=== PATIENT | female | born 1960 | race Hispanic/Latino ===

== ENCOUNTER 2016-12-12 21:16 | Inpatient (IN) | payer BC ==
[2016-12-12] MEDS ORDERED: NACL 0.9% 1000 ML 1,000 ML IV ONE (21:40)
[2016-12-12 22:14] LABS: Basophils % (Auto) 0.4 % (0.0-1.8); Eosinophils % (Auto) 0.1 % (0.0-4.3); Hematocrit 46.1 % (30.3-42.9); Hemoglobin 15.1 gm/dl (10.1-14.3); Mean Corpuscular HGB Conc 33 % (30-34); Mean Corpuscular Hemoglobin 28 pg (28-32); Mean Corpuscular Volume 87 fl (79-97); Platelet Count 295 K/mm3 (140-440); Red Blood Count 5.32 M/mm3 (3.65-5.03); Red Cell Distribution Width 13.3 % (13.2-15.2); White Blood Count 7.4 K/mm3 (4.5-11.0)
[2016-12-12 22:30] LABS: Anion Gap 24 mmol/L; Blood Urea Nitrogen 13 mg/dL (7-17); Calcium 9.2 mg/dL (8.4-10.2); Carbon Dioxide 23 mmol/L (22-30); Chloride 97.1 mmol/L (98-107); Glucose 125 mg/dL (65-100); Potassium 3.5 mmol/L (3.6-5.0); Sodium 141 mmol/L (137-145)
[2016-12-13] MEDS ORDERED: BENADRYL IV ONE (00:55)
[2016-12-13] MEDS ORDERED: ANTIVERT PO ONE (00:55)
[2016-12-13] MEDS ORDERED: REGLAN IV ONE (00:55)
[2016-12-13] MEDS ORDERED: NACL 0.9% 1000 ML 1,000 ML IV ONE (00:55)
[2016-12-13] MEDS ORDERED: K-DUR PO ONE (00:56)
--- NOTE | 2016-12-13 01:31 | Emergency Department Report ---
ED Dizziness HPI - General Chief Complaint: Nausea/Vomiting/Diarrhea Stated Complaint: N/V DIZZINESS Time Seen by Provider: 12/13/16 00:32 Source: patient Mode of arrival: Ambulatory Limitations: No Limitations - History of Present Illness Initial Comments: 56-year-old female with a past medical history of hypertension, rectal cancer, and multiple sclerosis presents to the hospital complains of motion sickness. Patient landed [place] yesterday at 5:30 PM. Since she has been having dizziness with moving her head with associated nausea, vomiting, and by mouth intolerance. She's been taking Zofran without improvement. Patient has had similar symptoms in the past with unknown cause and possibly related to her multiple sclerosis. Patient states she has been on meclizine in the past. She denies requiring admission for high-dose steroids in the past. Epigastric pain reported secondary to vomiting and chronic indigestino. - Related Data Home Medications Medication Instructions Recorded Confirmed Last Taken Ondansetron [Zofran Odt] 1 tab SL TID PRN 12/12/16 12/12/16 Unknown Tecfidera 240 mg PO DAILY 12/12/16 12/12/16 Unknown clonazePAM 0.5 mg PO DAILY 12/12/16 12/12/16 Unknown Allergies Allergy/AdvReac Type Severity Reaction Status Date / Time codeine Allergy Anaphylaxis Verified 12/12/16 21:37 ED Review of Systems ROS: Stated complaint: N/V DIZZINESS Other details as noted in HPI Comment: All other systems reviewed and negative Other: Constitutional: No fevers chills Eyes: No eye pain visual changes ENT: No ear pain or throat pain Neck: Denies pain Respiratory: Denies cough wheezing shortness of breath Cardiovascular: Denies chest pain, palpitations, syncope GI: as per hpi : Denies dysuria Musculoskeletal: Denies back pain Skin: Denies rash, lesions, erythema Neurologic: Denies headache, numbness, weakness ED Past Medical Hx - Past Medical History Hx Hypertension: Yes Hx of Cancer: Yes (Rectal) Additional medical history: MS - Surgical History Hx Cholecystectomy: Yes Additional Surgical History: Rectum Repair - Social History Smoking Status: Never Smoker Substance Use Type: None - Medications Home Medications: Home Medications Medication Instructions Recorded Confirmed Last Taken Type Ondansetron [Zofran Odt] 1 tab SL TID PRN 12/12/16 12/12/16 Unknown History Tecfidera 240 mg PO DAILY 12/12/16 12/12/16 Unknown History clonazePAM 0.5 mg PO DAILY 12/12/16 12/12/16 Unknown History ED Physical Exam - General Limitations: No Limitations - Other Other exam information: General: No limitations, patient is alert in no acute distress Head exam: Atraumatic, normocephalic Eyes exam: Normal appearance, pupils equal reactive to light, extraocular movements intact no nystagmus ENT: Moist mucous membrane, normal oropharynx Neck exam: Normal inspection, full range of motion Respiratory exam: Clear to auscultation bilateral, no wheezes, rales, crackles Cardiovascular: Normal rate and rhythm, normal heart sounds Abdomen: Soft, nondistended, mild epigastric tenderness, with normal bowel sounds, no rebound, or guarding Extremity: Full range of motion normal inspection no deformity Back: Normal Inspection, full range of motion, no tenderness Neurologic: Alert, oriented x3, cranial nerves intact, no motor or sensory deficit, [id number] function intact Psychiatric: normal affect, normal mood Skin: Warm, dry, intact ED Course Vital Signs 12/12/16 12/13/16 12/13/16 21:28 01:40 03:40 Temperature 98.7 F 99.1 F 99 F Pulse Rate 130 H 89 88 Respiratory 20 20 18 Rate Blood Pressure 147/100 Blood Pressure 147/100 133/87 133/68 [Left] O2 Sat by Pulse 99 99 98 Oximetry - Reevaluation(s) Reevaluation #1: 12/13/16 01:33 IV normal saline, Benadryl, Reglan ordered since Zofran is not helping prior to arrival. Additional by mouth meclizine and potassium ordered to be given when patient can tolerate po 12/13/16 04:18 pt c/o continued nausea. HR still above 100 after 2 L NS, + ketones in urine. No further vomiting. NO pain but + indigestion Reevaluation #2: 12/13/16 05:05 pt began to vomit again despite reglan and recent zofran dose. Ativan 1mg ordered ED Medical Decision Making - Lab Data Result diagrams: 12/12/16 21:59 12/12/16 21:59 Lab Results 12/12/16 12/12/16 12/12/16 Range/Units 03:30 21:59 21:59 WBC 7.4 (4.5-11.0) K/mm3 RBC 5.32 H (3.65-5.03) M/mm3 Hgb 15.1 H (10.1-14.3) gm/dl Hct 46.1 H (30.3-42.9) % MCV 87 (79-97) fl MCH 28 (28-32) pg MCHC 33 (30-34) % RDW 13.3 (13.2-15.2) % Plt Count 295 (140-440) K/mm3 Lymph % (Auto) 3.8 L (13.4-35.0) % [place] % (Auto) 13.8 H (0.0-7.3) % Eos % (Auto) 0.1 (0.0-4.3) % Baso % (Auto) 0.4 (0.0-1.8) % Lymph # 0.3 L (1.2-5.4) K/mm3 [place] # 1.0 H (0.0-0.8) K/mm3 Eos # 0.0 (0.0-0.4) K/mm3 Baso # 0.0 (0.0-0.1) K/mm3 Seg Neutrophils % 81.9 H (40.0-70.0) % Seg Neutrophils # 6.1 (1.8-7.7) K/mm3 Sodium 141 (137-145) mmol/L Potassium 3.5 L (3.6-5.0) mmol/L Chloride 97.1 L (98-107) mmol/L Carbon Dioxide 23 (22-30) mmol/L Anion Gap 24 mmol/L BUN 13 (7-17) mg/dL Creatinine 0.5 L (0.7-1.2) mg/dL Estimated GFR > 60 ml/min BUN/Creatinine Ratio 26.00 % Glucose 125 H (65-100) mg/dL POC Glucose (70-105) Calcium 9.2 (8.4-10.2) mg/dL Urine Color Yellow (Yellow) Urine Turbidity Clear (Clear) Urine pH 6.0 (5.0-7.0) Ur Specific [place] 1.021 (1.003-1.030) Urine Protein 30 mg/dl (Negative) mg/dL Urine Glucose (UA) Neg (Negative) mg/dL Urine Ketones 80 (Negative) mg/dL Urine Blood Neg (Negative) Urine Nitrite Neg (Negative) Urine Bilirubin Neg (Negative) Urine Urobilinogen < 2.0 (<2.0) mg/dL Ur Leukocyte Esterase Neg (Negative) Urine WBC (Auto) 1.0 (0.0-6.0) /HPF Urine RBC (Auto) 7.0 (0.0-6.0) /HPF U Epithel Cells (Auto) < 1.0 (0-13.0) /HPF Urine Mucus 2+ /HPF 12/13/16 Range/Units 03:59 WBC (4.5-11.0) K/mm3 RBC (3.65-5.03) M/mm3 Hgb (10.1-14.3) gm/dl Hct (30.3-42.9) % MCV (79-97) fl MCH (28-32) pg MCHC (30-34) % RDW (13.2-15.2) % Plt Count (140-440) K/mm3 Lymph % (Auto) (13.4-35.0) % [place] % (Auto) (0.0-7.3) % Eos % (Auto) (0.0-4.3) % Baso % (Auto) (0.0-1.8) % Lymph # (1.2-5.4) K/mm3 [place] # (0.0-0.8) K/mm3 Eos # (0.0-0.4) K/mm3 Baso # (0.0-0.1) K/mm3 Seg Neutrophils % (40.0-70.0) % Seg Neutrophils # (1.8-7.7) K/mm3 Sodium (137-145) mmol/L Potassium (3.6-5.0) mmol/L Chloride (98-107) mmol/L Carbon Dioxide (22-30) mmol/L Anion Gap mmol/L BUN (7-17) mg/dL Creatinine (0.7-1.2) mg/dL Estimated GFR ml/min BUN/Creatinine Ratio % Glucose (65-100) mg/dL POC Glucose 114 H (70-105) Calcium (8.4-10.2) mg/dL Urine Color (Yellow) Urine Turbidity (Clear) Urine pH (5.0-7.0) Ur Specific [place] (1.003-1.030) Urine Protein (Negative) mg/dL Urine Glucose (UA) (Negative) mg/dL Urine Ketones (Negative) mg/dL Urine Blood (Negative) Urine Nitrite (Negative) Urine Bilirubin (Negative) Urine Urobilinogen (<2.0) mg/dL Ur Leukocyte Esterase (Negative) Urine WBC (Auto) (0.0-6.0) /HPF Urine RBC (Auto) (0.0-6.0) /HPF U Epithel Cells (Auto) (0-13.0) /HPF Urine Mucus /HPF - EKG Data -: EKG Interpreted by Me (sinus tach rate 111, biatrial enlargement, pulm dz pattern) - EKG Data When compared to previous EKG there are: previous EKG unavailable - Medical Decision Making pt will be admitted to the hospital for intractable nausea with significant dehydration. Pt recieved K for mild hypokalemia - Differential Diagnosis vertigo, MS flare, dehydration, infection, CVA Critical Care Time: No Critical care attestation.: If time is entered above; I have spent that time in minutes in the direct care of this critically ill patient, excluding procedure time. ED Disposition Clinical Impression: Intractable nausea and vomiting, Dizziness, Dehydration, Indigestion, Multiple sclerosis, Hypokalemia Disposition: OP ADMITTED IP TO THIS HOSP Is pt being admited?: Yes Condition: Stable Time of Disposition: 04:28 (Dr Orr/hosp)
[2016-12-13] MEDS ORDERED: PEPCID IV ONE (03:33)
[2016-12-13] MEDS ORDERED: ALUM-MAG HYDROX-SIMETH 200-200-20MG/5ML PO ONE (03:33)
[2016-12-13] MEDS ORDERED: LIDOCAINE VISCOUS 2% PO ONE (03:33)
[2016-12-13 03:53] LABS: Bilirubin,Urine NEG (Negative); Blood,Urine NEG (Negative); Ketones,Urine 80 mg/dL (Negative); Leukocyte Esterase,Urine NEG (Negative); Mucus,Urine 2+ /HPF; Nitrite,Urine NEG (Negative); Urobilinogen,Urine < 2.0 mg/dL (<2.0)
[2016-12-13] MEDS ORDERED: ZOFRAN IV ONE (04:11)
[2016-12-13 04:40] LABS: Alanine Aminotransferase 41 units/L (7-56); Albumin 4.4 g/dL (3.9-5); Albumin/Globulin Ratio 1.3 %; Alkaline Phosphatase 69 units/L (35-129); Bilirubin,Total 0.3 mg/dL (0.1-1.2); Lipase 64 units/L (13-60); Total Protein 7.7 g/dL (6.3-8.2)
[2016-12-13 04:45] LABS: Bilirubin,Direct < 0.2 mg/dL (0-0.2); Bilirubin,Indirect 0.1 mg/dL
[2016-12-13] MEDS ORDERED: ATIVAN IV ONE (05:04)
[2016-12-13] MEDS: D5NS 1,000 ML IV SCH ×2 (05:06→22:02)
[2016-12-13] MEDS ORDERED: ATIVAN ONE (05:12)
[2016-12-13] MEDS ORDERED: ANTIVERT PO PRN (06:17)
[2016-12-13] MEDS ORDERED: BENADRYL IV PRN (06:17)
--- NOTE | 2016-12-13 06:29 | History and Physical Report ---
History of Present Illness Date of examination: 12/13/16 Date of admission: 12/13/16 04:29 Chief complaint: Nausea and vomiting History of present illness: 56-year-old female with past medical history significant for MS, hypertension, rectal cancer presented to the emergency department with complaints of nausea, vomiting, dizziness that started on Friday. Patient landed [place] Friday and started immediately after landing. Patient took Zofran with improvement. Patient denied abdominal pain, constipation. Patient had similar symptoms in the past with unknown cause. Patient denied fever, cough, or rhinorrhea. REVIEW OF SYSTEMS: GENERAL: no weight change, no fatigue, no fever HEAD: no head ache EYES: no blurry vision, no acute visual loss EARS: no hearing loss, no discharge, no earache NOSE: no stuffiness, no sneezing, no discharge MOUTH, THROAT AND NECK: no bleeding gums, no sore throat, no swollen neck CARDIAC: no palpitations, no dyspnea on exertion, no orthopnea, no PND, no edema , no chest pain RESPIRATORY: no shortness of breath, no wheeze, no cough, no sputum, no hemoptysis, no asthma GI: + decreased appetite, + nausea, + vomiting, no dysphagia, no diarrhea, no constipation, no abdominal pain URINARY: no change in frequency, no urgency, no polyuria, no hematuria, no incontinence MUSCULOSKELETAL: no muscle weakness, no pain, no joint stiffness NEUROLOGIC: +dizziness, no loss of sensation/numbness, no tingling, no tremors, no weakness/paralysis HEMATOLOGIC: no anemia, no easy bruising SKIN: no rashes ENDOCRINE: no heat/cold intolerance, no polyuria, no polydipsia, no thyroid problems, no diabetes PSYCHIATRIC: no anxiety, no depression, no suicidal ideations Past History Past Medical History: hypertension, other (Multiple Sclerosis, rectal cancer) Past Surgical History: cholecystectomy, bowel surgery Social history: full code. denies: smoking, alcohol abuse, prescription drug abuse, IV drug use Family history: CAD, cancer Medications and Allergies Allergies Allergy/AdvReac Type Severity Reaction Status Date / Time codeine Allergy Anaphylaxis Verified 12/12/16 21:37 Home Medications Medication Instructions Recorded Confirmed Last Taken Type Ondansetron [Zofran Odt] 1 tab SL TID PRN 12/12/16 12/12/16 Unknown History Tecfidera 240 mg PO DAILY 12/12/16 12/12/16 Unknown History clonazePAM 0.5 mg PO DAILY 12/12/16 12/12/16 Unknown History Active Meds: Active Medications Diphenhydramine HCl (Benadryl) 25 mg IV Q6H PRN PRN Reason: Itching Dextrose/Sodium Chloride (D5ns) 1,000 mls @ 999 mls/hr IV DIRECT SHARAN Last Admin: 12/13/16 05:06 Dose: 999 mls/hr Meclizine HCl (Antivert) 25 mg PO Q8H PRN PRN Reason: Vertigo Metoclopramide HCl (Reglan) 10 mg IV Q6H PRN PRN Reason: Nausea And Vomiting Exam - Physical Exam Narrative exam: Not in cardiopulmonary distress. The patient appeared well nourished and normally developed. Vital signs as documented. Head exam is unremarkable. No scleral icterus . Neck is without jugular venous distension, thyromegaly, or carotid bruits. Lungs are clear to auscultation. Cardiac exam reveals regular rate and Rhythm. First and second heart sounds normal. No murmurs, rubs or gallops. Abdominal exam reveals normal bowel sounds, no masses, no organomegaly and no aortic enlargement. Extremities are nonedematous and both femoral and pedal pulses are normal. PEDIATRIC NEUROLOGIST: Alert and oriented 3. No focal weakness. - Constitutional Vitals: Temp Pulse Resp BP Pulse Ox 99 F 89 20 132/76 99 12/13/16 05:48 12/13/16 05:48 12/13/16 05:48 12/13/16 05:48 12/13/16 05:48 Results - Labs CBC & Chem 7: 12/12/16 21:59 12/12/16 21:59 Labs: Laboratory Last Values WBC 7.4 K/mm3 (4.5-11.0) 12/12/16 21:59 RBC 5.32 M/mm3 (3.65-5.03) H 12/12/16 21:59 Hgb 15.1 gm/dl (10.1-14.3) H 12/12/16 21:59 Hct 46.1 % (30.3-42.9) H 12/12/16 21:59 MCV 87 fl (79-97) 12/12/16 21:59 MCH 28 pg (28-32) 12/12/16 21:59 MCHC 33 % (30-34) 12/12/16 21:59 RDW 13.3 % (13.2-15.2) 12/12/16 21:59 Plt Count 295 K/mm3 (140-440) 12/12/16 21:59 Lymph % (Auto) 3.8 % (13.4-35.0) L 12/12/16 21:59 [place] % (Auto) 13.8 % (0.0-7.3) H 12/12/16 21:59 Eos % (Auto) 0.1 % (0.0-4.3) 12/12/16 21:59 Baso % (Auto) 0.4 % (0.0-1.8) 12/12/16 21:59 Lymph # 0.3 K/mm3 (1.2-5.4) L 12/12/16 21:59 [place] # 1.0 K/mm3 (0.0-0.8) H 12/12/16 21:59 Eos # 0.0 K/mm3 (0.0-0.4) 12/12/16 21:59 Baso # 0.0 K/mm3 (0.0-0.1) 12/12/16 21:59 Seg Neutrophils % 81.9 % (40.0-70.0) H 12/12/16 21:59 Seg Neutrophils # 6.1 K/mm3 (1.8-7.7) 12/12/16 21:59 Sodium 141 mmol/L (137-145) 12/12/16 21:59 Potassium 3.5 mmol/L (3.6-5.0) L 12/12/16 21:59 Chloride 97.1 mmol/L (98-107) L 12/12/16 21:59 Carbon Dioxide 23 mmol/L (22-30) 12/12/16 21:59 Anion Gap 24 mmol/L 12/12/16 21:59 BUN 13 mg/dL (7-17) 12/12/16 21:59 Creatinine 0.5 mg/dL (0.7-1.2) L 12/12/16 21:59 Estimated GFR > 60 ml/min 12/12/16 21:59 BUN/Creatinine Ratio 26.00 % 12/12/16 21:59 Glucose 125 mg/dL (65-100) H 12/12/16 21:59 POC Glucose 114 (70-105) H 12/13/16 03:59 Calcium 9.2 mg/dL (8.4-10.2) 12/12/16 21:59 Total Bilirubin 0.3 mg/dL (0.1-1.2) 12/12/16 21:59 Direct Bilirubin < 0.2 mg/dL (0-0.2) 12/12/16 21:59 Indirect Bilirubin 0.1 mg/dL 12/12/16 21:59 AST 28 units/L (5-40) 12/12/16 21:59 ALT 41 units/L (7-56) 12/12/16 21:59 Alkaline Phosphatase 69 units/L (35-129) 12/12/16 21:59 Total Protein 7.7 g/dL (6.3-8.2) 12/12/16 21:59 Albumin 4.4 g/dL (3.9-5) 12/12/16 21:59 Albumin/Globulin Ratio 1.3 % 12/12/16 21:59 Lipase 64 units/L (13-60) H 12/12/16 21:59 Urine Color Yellow (Yellow) 12/12/16 03:30 Urine Turbidity Clear (Clear) 12/12/16 03:30 Urine pH 6.0 (5.0-7.0) 12/12/16 03:30 Ur Specific [place] 1.021 (1.003-1.030) 12/12/16 03:30 Urine Protein 30 mg/dl mg/dL (Negative) 12/12/16 03:30 Urine Glucose (UA) Neg mg/dL (Negative) 12/12/16 03:30 Urine Ketones 80 mg/dL (Negative) 12/12/16 03:30 Urine Blood Neg (Negative) 12/12/16 03:30 Urine Nitrite Neg (Negative) 12/12/16 03:30 Urine Bilirubin Neg (Negative) 12/12/16 03:30 Urine Urobilinogen < 2.0 mg/dL (<2.0) 12/12/16 03:30 Ur Leukocyte Esterase Neg (Negative) 12/12/16 03:30 Urine WBC (Auto) 1.0 /HPF (0.0-6.0) 12/12/16 03:30 Urine RBC (Auto) 7.0 /HPF (0.0-6.0) 12/12/16 03:30 U Epithel Cells (Auto) < 1.0 /HPF (0-13.0) 12/12/16 03:30 Urine Mucus 2+ /HPF 12/12/16 03:30 Assessment and Plan Assessment and plan: Intractable nausea and vomiting Dizziness Motion sickness Multiple sclerosis Hypertension - Patient is on IV fluid - On meclizine, Reglan, Benadryl and Zofran - GI consult placed - Continue home medications for MS - Headed before medications DVT prophylaxis - Lovenox Disposition - Admit to the medical floor Advance Directives: Yes VTE prophylaxis?: Chemical Plan of care discussed with patient/family: Yes
--- NOTE | 2016-12-13 08:16 | Admit Criteria Form ---
Admission Criteria Documentation: VOMITING Clinical Indications for Admission to Inpatient Care ( Place 'X' for any and all applicable criteria): Admission is indicated for ANY ONE of the following(1)(2)(3): [X ]I. Inpatient admission required rather than observation care because of ANY ONE of the following: [ ]i) Hemodynamic instability that is severe or persistent [ X]ii) Vomiting that is severe or persistent [ ]iii) Severe electrolyte abnormalities requiring inpatient care [ ]iv) Severe pain requiring acute inpatient management [ ]v) High fever or infection requiring inpatient admission as indicated by ANY ONE of the following(7)(8): [ ]1) Appropriate outpatient or observation care antimicrobial treatment unavailable, not effective, or not feasible [ ]2) Documented bacteremia [ ]3) Temp >104.9 degrees F (40.5 degrees C) (oral) [ ]4) Temp >103.1 degrees F (39.5 C) (oral) or <96.8 degrees F (36 C) (rectal) that does not respond to all emergency treatment measures [ ]vi) Acute renal failure [ ]vii) IV fluid to replace significant ongoing losses (greater than 3 L/m2 per day) [ ]viii) Parenteral nutrition regimen that must be implemented on inpatient basis [ ]ix) Other condition, treatment or monitoring requiring inpatient admission [ ]II. Complete or partial gastrointestinal obstruction [ ]III. Other cause of vomiting requiring hospitalization (eg, poisoning, increased intracranial pressure) [ ]IV. Vomiting due to significant metabolic derangement (eg, severe hypercalcemia, diabetic ketoacidosis) Extended stay beyond goal length of stay may be needed for(1)(4): [ ]a) Severe vomiting [ ]b) Persistent vomiting, vital sign changes, severe electrolyte imbalance , or diagnosed cause of vomiting that requires continued hospitalization (eg, gastrointestinal obstruction , increased intracranial pressure) [ ]c) Surgery to treat identified causes of vomiting (eg, bowel obstruction , intracranial process) [ ]d) Comorbid illness that requires inpatient care (eg, acute heart failure , renal failure) [ ]e) Need for inpatient endoscopy The original [facility] content created by [employer] [employer] has been revised. The portions of the content which have been revised are identified through the use of italic text or in bold, and [employer] [employer] has neither reviewed nor approved the modified material. All other unmodified content is copyright [facility]. Please see references footnoted in the original [facility] edition 2016 Admission Criteria Met: Yes
[2016-12-13] MEDS: REGLAN IV PRN (08:42)
[2016-12-13] MEDS ORDERED: TECFIDERA 240 MG PO SCH (10:00)
--- NOTE | 2016-12-13 10:58 | Event Note ---
Date: 12/13/16 Patient seen and examined. This is a follow-up from an admission earlier this morning. We will continue plan as outlined in H&P.
--- NOTE | 2016-12-13 20:25 | Consultation ---
History of Present Illness - Reason for Consult Consult date: 12/13/16 - History of Present Illness see dictated note Past History Past Medical History: hypertension, other (Multiple Sclerosis, rectal cancer) Past Surgical History: cholecystectomy, bowel surgery Social history: full code. denies: smoking, alcohol abuse, prescription drug abuse, IV drug use Family history: CAD, cancer Medications and Allergies Allergies Allergy/AdvReac Type Severity Reaction Status Date / Time codeine Allergy Anaphylaxis Verified 12/12/16 21:37 Home Medications Medication Instructions Recorded Confirmed Last Taken Type Ondansetron [Zofran Odt] 1 tab SL TID PRN 12/12/16 12/12/16 Unknown History Tecfidera 240 mg PO DAILY 12/12/16 12/12/16 Unknown History clonazePAM 0.5 mg PO DAILY 12/12/16 12/12/16 Unknown History Active Meds: Active Medications Clonazepam (Klonopin) 0.5 mg PO DAILY [facility] Last Admin: 12/13/16 18:47 Dose: Not Given Diphenhydramine HCl (Benadryl) 25 mg IV Q6H PRN PRN Reason: Itching Enoxaparin Sodium (Lovenox) 40 mg SUB-Q QDAY@2200 SHARAN Dextrose/Sodium Chloride (D5ns) 1,000 mls @ 999 mls/hr IV DIRECT SHARAN Last Admin: 12/13/16 05:06 Dose: 999 mls/hr Meclizine HCl (Antivert) 25 mg PO Q8H PRN PRN Reason: Vertigo Metoclopramide HCl (Reglan) 10 mg IV Q6H PRN PRN Reason: Nausea And Vomiting Last Admin: 12/13/16 08:42 Dose: 10 mg Miscellaneous Medication (Tecfidera) 240 mg PO DAILY [facility] Exam - Constitutional Vitals: Temp Pulse Resp BP Pulse Ox 98.5 F 94 H 20 136/70 99 12/13/16 16:00 12/13/16 16:00 12/13/16 16:00 12/13/16 16:00 12/13/16 08:00 Results - Labs CBC & Chem 7: 12/12/16 21:59 12/12/16 21:59 Assessment and Plan Pt with MS, severe motion sickness, adm with typical attack of N/V, but with diarrhea which is new. Rec - IVF and monitor electrolytes closes as she states her K usually drops. - check stool studies - if diarrhea persists, empiric abx and antidiarrheals
[2016-12-13] MEDS: LOVENOX SUB-Q SCH (21:17)
--- NOTE | 2016-12-13 21:39 | Consultation ---
REFERRING PHYSICIAN: Albaro Sethi MD REASON FOR CONSULTATION: Nausea and vomiting. HISTORY OF PRESENT ILLNESS: The patient is a 56-year-old [employer] for [employer], who presented to the Emergency Room with nausea and vomiting. She has multiple sclerosis since 2002, and has a severe problem with motion sickness, where once it starts, she has nausea and vomiting that is uncontrollable and she gets hospitalized for several days for IV fluids. She states that her usual problem with that is hypokalemia. Her last admission was 6-8 months ago. This episode started while she was on a plane from [place] to [place] on 12/11/2016. Nausea and vomiting started that evening and it persisted through yesterday until she presented to the Emergency Room from where she was admitted. Today, she has had no further nausea and vomiting though she still feels weak. She notes that the nausea and vomiting was associated with dizziness with moving her head. Atypically, she has developed diarrhea since last night. She usually has bowel movements once or twice a day, which has been unchanged and usually is not affected by her motion sickness episodes. However, she noted that she had a loose bowel movement last night and today she has had 4-5 loose watery brown stools. There has been no GI bleeding, abdominal pain. There has been no recent antibiotics or similar symptoms. She has had a colonoscopy in the last several years, which was normal. She denies any unusual ingestions. There have been no fevers, chills, sweats, chest pain, or shortness of breath. ALLERGIES: She has an allergy to codeine. MEDICATIONS: At home, she is on Tecfidera, Zofran ODT, and clonazepam. PAST MEDICAL HISTORY: She has a history of: 1. Multiple sclerosis - since 2002. Symptoms are very well controlled with Tecfidera. 2. Motion sickness -- severe requiring frequent hospitalizations. 3. Hypertension. 4. Rectal cancer -- this was a polypoid lesion that was stage 1 and was resected in 2009 with no further therapy. She has been undergoing surveillance appropriately. FAMILY HISTORY: Notable for colon cancer in her father. SOCIAL HISTORY: Negative for tobacco or ethanol usage. REVIEW OF SYSTEMS: Negative and as noted above. PHYSICAL EXAMINATION: GENERAL: This is a fatigued appearing middle-aged white female lying in bed in no apparent distress. VITAL SIGNS: Temperature is 98.5, pulse 94, blood pressure 136/70. HEENT: She is anicteric. Pupils are round and reactive. Oropharynx is clear. LUNGS: Clear bilaterally to auscultation. CARDIOVASCULAR: Regular with no extra heart sounds. ABDOMEN: Soft with good bowel sounds and no organomegaly or tenderness to palpation. RECTAL: Deferred and liquid brown stool was noted in a container in the bathroom. EXTREMITIES: Reveal no edema. NEUROLOGIC: She is alert, oriented x 3. Grossly nonfocal. LABORATORY DATA: White count is 7.4, hemoglobin 15.1, hematocrit 46.1, MCV of 87, platelet count of 295,000. Sodium is 141, potassium 3.5, chloride 97, bicarbonate 22, BUN 13, creatinine 0.5, glucose 125. AST is , ALT is 41, alkaline phosphatase is 69, total bilirubin is 0.3, albumin is 4.4. IMPRESSION: 1. Nausea/vomiting -- consistent with the patient's known attacks of motion sickness. She is doing better today. I will advance her diet as tolerated and I would monitor her electrolytes closely as the patient is prone to hypokalemia according to her. No further evaluation of the nausea and vomiting appears to be warranted at this time. 2. Diarrhea -- this is a new symptom for her and started yesterday evening. Stool studies are appropriate as there is no clear indication of etiology from history. If symptoms fail to resolve tomorrow, I would consider empiric antibiotic therapy and possible antidiarrheals. JOB# [id number] HRC/NTS
[2016-12-14] MEDS: REGLAN IV PRN ×4 (00:33→22:59)
[2016-12-14] MEDS: D5NS 1,000 ML IV SCH ×2 (07:40→22:28)
[2016-12-14 08:05] LABS: Basophils % (Auto) 0.4 % (0.0-1.8); Hemoglobin 13.4 gm/dl (10.1-14.3); Mean Corpuscular HGB Conc 33 % (30-34); Mean Corpuscular Hemoglobin 28 pg (28-32); Mean Corpuscular Volume 87 fl (79-97); Platelet Count 260 K/mm3 (140-440); Red Blood Count 4.74 M/mm3 (3.65-5.03); Red Cell Distribution Width 13.2 % (13.2-15.2)
[2016-12-14 08:25] LABS: Anion Gap 17 mmol/L; Blood Urea Nitrogen 8 mg/dL (7-17); Calcium 8.1 mg/dL (8.4-10.2); Carbon Dioxide 20 mmol/L (22-30); Chloride 106.1 mmol/L (98-107); Glucose 111 mg/dL (65-100); Sodium 140 mmol/L (137-145)
[2016-12-14 08:28] LABS: Potassium 2.8 mmol/L (3.6-5.0)
[2016-12-14] MEDS ORDERED: KCL 10MEQ/100ML 10 MEQ/100 ML BAG IV ONE ×2 (09:37→13:00)
--- NOTE | 2016-12-14 11:28 | Progress Note ---
Assessment and Plan Assessment and plan: 1. Diarrhea. We will follow-up stool studies and continue empiric antibiotics for possible infectious etiology. GI following. 2. Benign positional vertigo. Patient will be continued on meclizine and supportive care. 3. Intractable nausea and vomiting. Etiology secondary to #2. Continue IV fluid hydration, Zofran and Reglan. 4. Multiple sclerosis. Supportive care. 5. Hypertension. Resume antihypertensive medications. 6. Hypokalemia. Etiology secondary to #1. Repeat potassium IV. Check magnesium level. 7. DVT prophylaxis. Continue Lovenox. History Interval history: Patient still complains of nausea and general malaise. Patient also complains of multiple episodes of diarrhea. Hospitalist Physical - Constitutional Vitals: Temp Pulse Resp BP Pulse Ox 99.3 F 94 H 18 124/63 97 12/14/16 08:00 12/14/16 08:00 12/14/16 08:00 12/14/16 08:00 12/14/16 08:00 General appearance: Present: no acute distress, well-nourished - EENT Eyes: Present: PERRL, EOM intact ENT: hearing intact, clear oral mucosa, dentition normal - Neck Neck: Present: supple, normal ROM - Respiratory Respiratory effort: normal Respiratory: bilateral: CTA - Cardiovascular Rhythm: regular Heart Sounds: Present: S1 & S2. Absent: gallop, rub - Extremities Extremities: no ischemia, No edema, Full ROM - Abdominal General gastrointestinal: soft, non-tender, non-distended, normal bowel sounds - Integumentary Integumentary: Present: clear, warm, dry - Neurologic Neurologic: CNII-XII intact, moves all extremities Results - Labs CBC & Chem 7: 12/14/16 07:16 12/14/16 07:16 Labs: Laboratory Last Values WBC 9.0 K/mm3 (4.5-11.0) 12/14/16 07:16 RBC 4.74 M/mm3 (3.65-5.03) 12/14/16 07:16 Hgb 13.4 gm/dl (10.1-14.3) 12/14/16 07:16 Hct 41.0 % (30.3-42.9) 12/14/16 07:16 MCV 87 fl (79-97) 12/14/16 07:16 MCH 28 pg (28-32) 12/14/16 07:16 MCHC 33 % (30-34) 12/14/16 07:16 RDW 13.2 % (13.2-15.2) 12/14/16 07:16 Plt Count 260 K/mm3 (140-440) 12/14/16 07:16 Lymph % (Auto) 9.3 % (13.4-35.0) L 12/14/16 07:16 Coal % (Auto) 13.2 % (0.0-7.3) H 12/14/16 07:16 Eos % (Auto) 0.0 % (0.0-4.3) 12/14/16 07:16 Baso % (Auto) 0.4 % (0.0-1.8) 12/14/16 07:16 Lymph # 0.8 K/mm3 (1.2-5.4) L 12/14/16 07:16 Coal # 1.2 K/mm3 (0.0-0.8) H 12/14/16 07:16 Eos # 0.0 K/mm3 (0.0-0.4) 12/14/16 07:16 Baso # 0.0 K/mm3 (0.0-0.1) 12/14/16 07:16 Seg Neutrophils % 77.1 % (40.0-70.0) H 12/14/16 07:16 Seg Neutrophils # 7.0 K/mm3 (1.8-7.7) 12/14/16 07:16 Sodium 140 mmol/L (137-145) 12/14/16 07:16 Potassium 2.8 mmol/L (3.6-5.0) L* 12/14/16 07:16 Chloride 106.1 mmol/L (98-107) 12/14/16 07:16 Carbon Dioxide 20 mmol/L (22-30) L 12/14/16 07:16 Anion Gap 17 mmol/L 12/14/16 07:16 BUN 8 mg/dL (7-17) 12/14/16 07:16 Creatinine 0.4 mg/dL (0.7-1.2) L 12/14/16 07:16 Estimated GFR > 60 ml/min 12/14/16 07:16 BUN/Creatinine Ratio 20.00 % 12/14/16 07:16 Glucose 111 mg/dL (65-100) H 12/14/16 07:16 POC Glucose 109 (70-105) H 12/14/16 06:09 Calcium 8.1 mg/dL (8.4-10.2) L 12/14/16 07:16 Total Bilirubin 0.3 mg/dL (0.1-1.2) 12/12/16 21:59 Direct Bilirubin < 0.2 mg/dL (0-0.2) 12/12/16 21:59 Indirect Bilirubin 0.1 mg/dL 12/12/16 21:59 AST 28 units/L (5-40) 12/12/16 21:59 ALT 41 units/L (7-56) 12/12/16 21:59 Alkaline Phosphatase 69 units/L (35-129) 12/12/16 21:59 Total Protein 7.7 g/dL (6.3-8.2) 12/12/16 21:59 Albumin 4.4 g/dL (3.9-5) 12/12/16 21:59 Albumin/Globulin Ratio 1.3 % 12/12/16 21:59 Lipase 64 units/L (13-60) H 12/12/16 21:59 Urine Color Yellow (Yellow) 12/12/16 03:30 Urine Turbidity Clear (Clear) 12/12/16 03:30 Urine pH 6.0 (5.0-7.0) 12/12/16 03:30 Ur Specific [place] 1.021 (1.003-1.030) 12/12/16 03:30 Urine Protein 30 mg/dl mg/dL (Negative) 12/12/16 03:30 Urine Glucose (UA) Neg mg/dL (Negative) 12/12/16 03:30 Urine Ketones 80 mg/dL (Negative) 12/12/16 03:30 Urine Blood Neg (Negative) 12/12/16 03:30 Urine Nitrite Neg (Negative) 12/12/16 03:30 Urine Bilirubin Neg (Negative) 12/12/16 03:30 Urine Urobilinogen < 2.0 mg/dL (<2.0) 12/12/16 03:30 Ur Leukocyte Esterase Neg (Negative) 12/12/16 03:30 Urine WBC (Auto) 1.0 /HPF (0.0-6.0) 12/12/16 03:30 Urine RBC (Auto) 7.0 /HPF (0.0-6.0) 12/12/16 03:30 U Epithel Cells (Auto) < 1.0 /HPF (0-13.0) 12/12/16 03:30 Urine Mucus 2+ /HPF 12/12/16 03:30
--- NOTE | 2016-12-14 12:24 | Gastroenterology Progress Note ---
Assessment and Plan 1. UGI: h/o MS presented w/ motion sickness along with nausea/vomiting - nausea, vomiting improved - advance diet as tolerated - continue current meds 2. LGI: pt w/ diarrhea - stool cx's pending - continue antibiotics - add questran bid - no plans to scope at this time - hopefully d/c soon Subjective Date of service: 12/14/16 Interval history: - pt reports nausea, vomiting, improved. Reports still with diarrhea. Denies other complaints Objective - Constitutional Vitals: Temp Pulse Resp BP Pulse Ox 99.3 F 94 H 18 124/63 97 12/14/16 08:00 12/14/16 08:00 12/14/16 08:00 12/14/16 08:00 12/14/16 08:00 General appearance: no acute distress - Neck Neck: supple - Respiratory Respiratory: bilateral: CTA - Cardiovascular Rhythm: regular Heart Sounds: Present: S1 & S2 - Gastrointestinal General gastrointestinal: Present: soft, non-tender - Labs CBC & Chem 7: 12/14/16 07:16 12/14/16 07:16 Labs: Laboratory Results - last 24 hr 12/13/16 12/14/16 12/14/16 21:19 06:09 07:16 WBC 9.0 RBC 4.74 Hgb 13.4 Hct 41.0 MCV 87 MCH 28 MCHC 33 RDW 13.2 Plt Count 260 Lymph % (Auto) 9.3 L Gaines % (Auto) 13.2 H Eos % (Auto) 0.0 Baso % (Auto) 0.4 Lymph # 0.8 L [place]aines # 1.2 H Eos # 0.0 Baso # 0.0 Seg Neutrophils % 77.1 H Seg Neutrophils # 7.0 Sodium Potassium Chloride Carbon Dioxide Anion Gap BUN Creatinine Estimated GFR BUN/Creatinine Ratio Glucose POC Glucose 96 109 H Calcium Magnesium 12/14/16 12/14/16 12/14/16 07:16 07:16 11:35 WBC RBC Hgb Hct MCV MCH MCHC RDW Plt Count Lymph % (Auto) [place]aines % (Auto) Eos % (Auto) Baso % (Auto) Lymph # Gaines # Eos # Baso # Seg Neutrophils % Seg Neutrophils # Sodium 140 Potassium 2.8 L* Chloride 106.1 Carbon Dioxide 20 L Anion Gap 17 BUN 8 Creatinine 0.4 L Estimated GFR > 60 BUN/Creatinine Ratio 20.00 Glucose 111 H POC Glucose 110 H Calcium 8.1 L Magnesium 1.9
[2016-12-14] MEDS: FLAGYL 500 MG/100 ML 500 MG/100 ML BAG IV SCH ×2 (13:27→22:28)
[2016-12-14] MEDS: PROTONIX PO SCH (15:19)
[2016-12-14] MEDS: TYLENOL PO PRN ×2 (15:20→23:02)
[2016-12-14] MEDS: LOVENOX SUB-Q SCH (22:29)
[2016-12-14] MEDS: QUESTRAN PO SCH (22:30)
[2016-12-15] MEDS: QUESTRAN PO SCH ×3 (00:46→21:40)
[2016-12-15] MEDS: FLAGYL 500 MG/100 ML 500 MG/100 ML BAG IV SCH ×3 (05:15→21:39)
[2016-12-15 05:58] LABS: Basophils % (Auto) 0.3 % (0.0-1.8); Eosinophils % (Auto) 0.1 % (0.0-4.3); Mean Corpuscular HGB Conc 33 % (30-34); Mean Corpuscular Hemoglobin 28 pg (28-32); Mean Corpuscular Volume 85 fl (79-97); Platelet Count 215 K/mm3 (140-440); Red Blood Count 4.59 M/mm3 (3.65-5.03); White Blood Count 5.8 K/mm3 (4.5-11.0)
[2016-12-15 06:22] LABS: Anion Gap 15 mmol/L; Blood Urea Nitrogen 8 mg/dL (7-17); Calcium 8.1 mg/dL (8.4-10.2); Carbon Dioxide 23 mmol/L (22-30); Chloride 108.8 mmol/L (98-107); Glucose 103 mg/dL (65-100); Sodium 143 mmol/L (137-145)
[2016-12-15 06:24] LABS: Potassium 3.4 mmol/L (3.6-5.0)
[2016-12-15] MEDS: LEVAQUIN 500MG/100ML 500 MG/100 ML BAG IV SCH (10:05)
[2016-12-15] MEDS: PROTONIX PO SCH (10:06)
[2016-12-15] MEDS: D5NS 1,000 ML IV SCH (10:07)
--- NOTE | 2016-12-15 10:14 | Progress Note ---
Assessment and Plan Assessment and plan: 1. Diarrhea. We will follow-up stool studies and continue antibiotics. GI following. Continue Questran BID 2. Benign positional vertigo. Patient will be continued on meclizine and supportive care. 3. Intractable nausea and vomiting. Etiology secondary to #2. Continue IV fluid hydration, Zofran and Reglan. 4. Multiple sclerosis. Supportive care. 5. Hypertension. Resume antihypertensive medications. 6. Hypokalemia. Etiology secondary to #1. Repeat potassium IV. 7. DVT prophylaxis. Continue Lovenox. 8. Deconditioning. PT evaluation. History Interval history: Patient still complains of nausea and general malaise. Patient also complains of multiple episodes of diarrhea. No improvement since yesterday. Hospitalist Physical - Constitutional Vitals: Temp Pulse Resp BP Pulse Ox 98.0 F 83 18 116/53 100 12/15/16 00:18 12/15/16 00:18 12/15/16 00:18 12/15/16 00:18 12/15/16 00:18 General appearance: Present: no acute distress, well-nourished - EENT Eyes: Present: PERRL, EOM intact ENT: hearing intact, clear oral mucosa, dentition normal - Neck Neck: Present: supple, normal ROM - Respiratory Respiratory effort: normal Respiratory: bilateral: CTA - Cardiovascular Rhythm: regular Heart Sounds: Present: S1 & S2. Absent: gallop, rub - Extremities Extremities: no ischemia, No edema, Full ROM - Abdominal General gastrointestinal: soft, non-tender, non-distended, normal bowel sounds - Integumentary Integumentary: Present: clear, warm, dry - Neurologic Neurologic: CNII-XII intact, moves all extremities Results - Labs CBC & Chem 7: 12/15/16 05:30 12/15/16 05:30 Labs: Laboratory Last Values WBC 5.8 K/mm3 (4.5-11.0) 12/15/16 05:30 RBC 4.59 M/mm3 (3.65-5.03) 12/15/16 05:30 Hgb 13.0 gm/dl (10.1-14.3) 12/15/16 05:30 Hct 39.0 % (30.3-42.9) 12/15/16 05:30 MCV 85 fl (79-97) 12/15/16 05:30 MCH 28 pg (28-32) 12/15/16 05:30 MCHC 33 % (30-34) 12/15/16 05:30 RDW 13.0 % (13.2-15.2) L 12/15/16 05:30 Plt Count 215 K/mm3 (140-440) 12/15/16 05:30 Lymph % (Auto) 15.9 % (13.4-35.0) 12/15/16 05:30 Porter % (Auto) 13.1 % (0.0-7.3) H 12/15/16 05:30 Eos % (Auto) 0.1 % (0.0-4.3) 12/15/16 05:30 Baso % (Auto) 0.3 % (0.0-1.8) 12/15/16 05:30 Lymph # 0.9 K/mm3 (1.2-5.4) L 12/15/16 05:30 Porter # 0.8 K/mm3 (0.0-0.8) 12/15/16 05:30 Eos # 0.0 K/mm3 (0.0-0.4) 12/15/16 05:30 Baso # 0.0 K/mm3 (0.0-0.1) 12/15/16 05:30 Seg Neutrophils % 70.6 % (40.0-70.0) H 12/15/16 05:30 Seg Neutrophils # 4.1 K/mm3 (1.8-7.7) 12/15/16 05:30 Sodium 143 mmol/L (137-145) 12/15/16 05:30 Potassium 3.4 mmol/L (3.6-5.0) L D 12/15/16 05:30 Chloride 108.8 mmol/L (98-107) H 12/15/16 05:30 Carbon Dioxide 23 mmol/L (22-30) 12/15/16 05:30 Anion Gap 15 mmol/L 12/15/16 05:30 BUN 8 mg/dL (7-17) 12/15/16 05:30 Creatinine 0.4 mg/dL (0.7-1.2) L 12/15/16 05:30 Estimated GFR > 60 ml/min 12/15/16 05:30 BUN/Creatinine Ratio 20.00 % 12/15/16 05:30 Glucose 103 mg/dL (65-100) H 12/15/16 05:30 POC Glucose 97 (70-105) 12/15/16 06:03 Calcium 8.1 mg/dL (8.4-10.2) L 12/15/16 05:30 Magnesium 1.9 mg/dL (1.7-2.3) 12/14/16 07:16 Total Bilirubin 0.3 mg/dL (0.1-1.2) 12/12/16 21:59 Direct Bilirubin < 0.2 mg/dL (0-0.2) 12/12/16 21:59 Indirect Bilirubin 0.1 mg/dL 12/12/16 21:59 AST 28 units/L (5-40) 12/12/16 21:59 ALT 41 units/L (7-56) 12/12/16 21:59 Alkaline Phosphatase 69 units/L (35-129) 12/12/16 21:59 Total Protein 7.7 g/dL (6.3-8.2) 12/12/16 21:59 Albumin 4.4 g/dL (3.9-5) 12/12/16 21:59 Albumin/Globulin Ratio 1.3 % 12/12/16 21:59 Lipase 64 units/L (13-60) H 12/12/16 21:59 Urine Color Yellow (Yellow) 12/12/16 03:30 Urine Turbidity Clear (Clear) 12/12/16 03:30 Urine pH 6.0 (5.0-7.0) 12/12/16 03:30 Ur Specific [place] 1.021 (1.003-1.030) 12/12/16 03:30 Urine Protein 30 mg/dl mg/dL (Negative) 12/12/16 03:30 Urine Glucose (UA) Neg mg/dL (Negative) 12/12/16 03:30 Urine Ketones 80 mg/dL (Negative) 12/12/16 03:30 Urine Blood Neg (Negative) 12/12/16 03:30 Urine Nitrite Neg (Negative) 12/12/16 03:30 Urine Bilirubin Neg (Negative) 12/12/16 03:30 Urine Urobilinogen < 2.0 mg/dL (<2.0) 12/12/16 03:30 Ur Leukocyte Esterase Neg (Negative) 12/12/16 03:30 Urine WBC (Auto) 1.0 /HPF (0.0-6.0) 12/12/16 03:30 Urine RBC (Auto) 7.0 /HPF (0.0-6.0) 12/12/16 03:30 U Epithel Cells (Auto) < 1.0 /HPF (0-13.0) 12/12/16 03:30 Urine Mucus 2+ /HPF 12/12/16 03:30
[2016-12-15] MEDS: REGLAN IV PRN (11:02)
--- NOTE | 2016-12-15 11:39 | Gastroenterology Progress Note ---
Assessment and Plan GI: overall improved symptoms, still with diarrhea - stool cx's benign, will follow - start Lomotil 1 tab po q8h prn - continue current diet and other meds - if stable am ok to d/c from GI standpoint - will follow Subjective Date of service: 12/15/16 Interval history: - reports still with diarrhea, nausea, vomiting improved Objective - Constitutional Vitals: Temp Pulse Resp BP Pulse Ox 98.0 F 83 18 116/53 100 12/15/16 00:18 12/15/16 00:18 12/15/16 00:18 12/15/16 00:18 12/15/16 00:18 General appearance: no acute distress - Respiratory Respiratory: bilateral: CTA - Cardiovascular Rhythm: regular Heart Sounds: Present: S1 & S2 - Gastrointestinal General gastrointestinal: Present: soft - Labs CBC & Chem 7: 12/15/16 05:30 12/15/16 05:30 Labs: Laboratory Results - last 24 hr 12/14/16 12/14/16 12/14/16 07:16 11:35 16:22 WBC RBC Hgb Hct MCV MCH MCHC RDW Plt Count Lymph % (Auto) [place] % (Auto) Eos % (Auto) Baso % (Auto) Lymph # Steele # Eos # Baso # Seg Neutrophils % Seg Neutrophils # Sodium Potassium Chloride Carbon Dioxide Anion Gap BUN Creatinine Estimated GFR BUN/Creatinine Ratio Glucose POC Glucose 110 H 90 Calcium Magnesium 1.9 12/14/16 12/15/16 12/15/16 22:18 05:30 05:30 WBC 5.8 RBC 4.59 Hgb 13.0 Hct 39.0 MCV 85 MCH 28 MCHC 33 RDW 13.0 L Plt Count 215 Lymph % (Auto) 15.9 Steele % (Auto) 13.1 H Eos % (Auto) 0.1 Baso % (Auto) 0.3 Lymph # 0.9 L Steele # 0.8 Eos # 0.0 Baso # 0.0 Seg Neutrophils % 70.6 H Seg Neutrophils # 4.1 Sodium 143 Potassium 3.4 L D Chloride 108.8 H Carbon Dioxide 23 Anion Gap 15 BUN 8 Creatinine 0.4 L Estimated GFR > 60 BUN/Creatinine Ratio 20.00 Glucose 103 H POC Glucose 99 Calcium 8.1 L Magnesium 12/15/16 06:03 WBC RBC Hgb Hct MCV MCH MCHC RDW Plt Count Lymph % (Auto) [place] % (Auto) Eos % (Auto) Baso % (Auto) Lymph # Steele # Eos # Baso # Seg Neutrophils % Seg Neutrophils # Sodium Potassium Chloride Carbon Dioxide Anion Gap BUN Creatinine Estimated GFR BUN/Creatinine Ratio Glucose POC Glucose 97 Calcium Magnesium
[2016-12-15] MEDS ORDERED: LOMOTIL PO PRN (15:00)
[2016-12-15] MEDS: LOVENOX SUB-Q SCH (21:39)
[2016-12-16] MEDS: D5NS 1,000 ML IV SCH (00:29)
[2016-12-16 05:16] LABS: Anion Gap 16 mmol/L; Blood Urea Nitrogen 3 mg/dL (7-17); Calcium 7.6 mg/dL (8.4-10.2); Carbon Dioxide 25 mmol/L (22-30); Chloride 104.9 mmol/L (98-107); Glucose 102 mg/dL (65-100); Sodium 143 mmol/L (137-145)
[2016-12-16] MEDS: FLAGYL 500 MG/100 ML 500 MG/100 ML BAG IV SCH (06:05)
[2016-12-16 06:57] LABS: Potassium 2.7 mmol/L (3.6-5.0)
[2016-12-16] MEDS: LEVAQUIN 500MG/100ML 500 MG/100 ML BAG IV SCH (09:01)
[2016-12-16] MEDS: PROTONIX PO SCH (09:02)
[2016-12-16] MEDS: QUESTRAN PO SCH (09:02)
[2016-12-16 09:48] VITALS: BP 135/70
--- NOTE | 2016-12-16 10:02 | Discharge Summary ---
Providers - Providers Date of Admission: 12/13/16 04:29 Date of discharge: 12/16/16 Attending physician: JAH KOHLER 12/13/16 06:18 Consult to Physician [CONS] Routine Consulting Provider: [facility] Reason For Exam: N/V Place consult to:: GI Notified:: office Phone number called:: [phone] Was contact made?: Yes If yes, spoke with:: luis [email or web address] Time called:: 10:19 12/15/16 10:14 Physical Therapy Evaluation and Treat [CONS] Routine Comment: Reason For Exam: ambulation Primary care physician: [employer] Hospitalization Reason for admission: abd pain, diarrhea Condition: Stable Hospital course: 56-year-old female with past medical history significant for MS, hypertension, rectal cancer presented to the emergency department with complaints of nausea, vomiting, dizziness that started on Friday. Patient landed [place] Friday and started immediately after landing. Patient took Zofran with improvement. Patient denied abdominal pain, constipation. Patient was admitted with diagnosis of vertigo. Patient later developed diarrhea during hospitalization. Patient was seen by GI consultation. Stool cultures were benign. Patient was then started on Lomotil 1 tab by mouth every 8 hours as needed with improvement in the diarrhea. Patient's vertigo improved with the meclizine. Patient was felt to have received maximal hospital benefit. Patient will be discharged home. Dedicated discharged on 35 minutes. Disposition: DISCHARGED TO HOME OR SELFCARE Time spent for discharge: 35 - Discharge Diagnoses (1) Vertigo Status: Acute (2) Diarrhea Status: Acute Qualifiers: Diarrhea type: D (3) Intractable nausea and vomiting Status: Acute Qualifiers: Vomiting type: V (4) Multiple sclerosis Status: Acute Core Measure Documentation - Palliative Care Palliative Care/ Comfort Measures: Not Applicable - Core Measures Any of the following diagnoses?: none Exam - Constitutional Vitals: Temp Pulse Resp BP Pulse Ox 98.5 F 90 18 135/70 97 12/16/16 08:47 12/16/16 08:47 12/16/16 08:47 12/16/16 08:47 12/16/16 08:47 General appearance: Present: no acute distress, well-nourished - EENT Eyes: Present: PERRL ENT: hearing intact, clear oral mucosa - Neck Neck: Present: supple, normal ROM - Respiratory Respiratory effort: normal Respiratory: bilateral: CTA - Cardiovascular Heart Sounds: Present: S1 & S2. Absent: rub, click - Extremities Extremities: pulses symmetrical, No edema Peripheral Pulses: within normal limits - Abdominal General gastrointestinal: Present: soft, non-tender, non-distended, normal bowel sounds Female genitourinary: Present: normal - Integumentary Integumentary: Present: clear, warm, dry - Musculoskeletal Musculoskeletal: gait normal, strength equal bilaterally - Psychiatric Psychiatric: appropriate mood/affect, intact judgment & insight - Neurologic Neurologic: CNII-XII intact, moves all extremities Plan Activity: no restrictions Weight Bearing Status: Full Weight Bearing Diet: regular Follow up with: PRIMARY CARE, [Primary Care Provider] - 7 Days Prescriptions: Cholestyramine (with Sugar) [Questran] 4 gm PO BID #60 packet clonazePAM [KlonoPIN] 0.5 mg PO DAILY #20 tablet Diphenoxylate/Atropine [Lomotil] 1 tab PO Q6H PRN #30 tablet PRN Reason: Diarrhea Meclizine [Antivert] 25 mg PO Q8H PRN #30 tablet PRN Reason: Vertigo Pantoprazole [Protonix TAB] 40 mg PO QDAY #30 tablet
--- NOTE | 2016-12-16 13:41 | Gastroenterology Progress Note ---
Assessment and Plan GI: pt stable overnight tolerating po - diarrhea improved - ok to d/c from GI standpoint, will sign off, call if needed Subjective Date of service: 12/16/16 Interval history: - pt stable overnight Objective - Constitutional Vitals: Temp Pulse Resp BP Pulse Ox 98.5 F 90 18 135/70 97 12/16/16 08:47 12/16/16 08:47 12/16/16 08:47 12/16/16 08:47 12/16/16 08:47 General appearance: no acute distress - EENT Eyes: PERRL - Respiratory Respiratory: bilateral: CTA - Cardiovascular Rhythm: regular Heart Sounds: Present: S1 & S2 - Gastrointestinal General gastrointestinal: Present: soft, non-tender, non-distended - Labs CBC & Chem 7: 12/15/16 05:30 12/16/16 04:31 Labs: Laboratory Results - last 24 hr 12/16/16 04:31 Sodium 143 Potassium 2.7 L* D Chloride 104.9 Carbon Dioxide 25 Anion Gap 16 BUN 3 L Creatinine 0.4 L Estimated GFR > 60 BUN/Creatinine Ratio 7.50 Glucose 102 H Calcium 7.6 L
== END 2016-12-16 12:45 | disposition home or self-care (01) | DRG 149 ==
LOC: ED 21:16 → 3A 12-13 04:29
PROVIDERS: ADMIT Internal Medicine; ATTEND Hospitalist
DX: H81.10 Benign paroxysmal vertigo, unspecified ear (principal); G35 Multiple sclerosis; E87.6 Hypokalemia; R19.7 Diarrhea, unspecified; I10 Essential (primary) hypertension; Z88.6 Allergy status to analgesic agent; Z85.048 Personal history of other malignant neoplasm of rectum, rectosigmoid junction, and anus; Z90.49 Acquired absence of other specified parts of digestive tract; Z82.49 Family history of ischemic heart disease and other diseases of the circulatory system; Z80.9 Family history of malignant neoplasm, unspecified
CPT/HCPCS: 36415; 80048; 80074; 81001; 82962; 83690; 83735; 85007; 85025; 87045; 87493; 93005; 93010; 96361; 96374; 96375; J1200; J1650; J1956; J2060; J2405; J2765; J3480; J7030; J7042